=== PATIENT | female | born 1990 | race Caucasian/White ===

== ENCOUNTER 2016-10-09 17:22 | Emergency (ER) | payer BC, OTHER ==
[2016-10-09 17:33] VITALS: RESP 18
--- NOTE | 2016-10-09 17:47 | ED ---
General Adult HPI - General Chief complaint: Psychiatric Symptoms Stated complaint: MENTAL HEALTH - SUICIDAL Time Seen by Provider: 10/09/16 17:42 Source: patient, RN notes reviewed Mode of arrival: ambulatory Limitations: no limitations - History of Present Illness Initial comments: Patient is a 26-year-old female who presents emergency room today with a chief complaint of increased suicidal thoughts. She does admit that she recently got out of alf. Does admit to a history of bipolar. States been 2 years since she 's been on medications. Patient states that she no longer has a therapist, but she is following up with. She states she's having increased thoughts of hurting herself. Patient denies any specific plan at this time. Will not elaborate on it. Denies any homicidal thoughts or plans. Denies any other complaints associated symptoms. Patient denies any recent fever, chills, shortness of breath, chest pain, back pain, abdominal pain, nausea or vomiting, numbness or tingling, dysuria or hematuria, constipation or diarrhea, headaches or visual changes, or any other complaints. - Related Data Home Medications Medication Instructions Recorded Confirmed No Known Home Medications [No 10/09/16 10/09/16 Known Home Medications] Allergies Allergy/AdvReac Type Severity Reaction Status Date / Time No Known Allergies Allergy Verified 10/09/16 17:59 Review of Systems ROS Statement: Those systems with pertinent positive or pertinent negative responses have been documented in the HPI. ROS Other: All systems not noted in ROS Statement are negative. Past Medical History Past Medical History: No Reported History History of Any Multi-Drug Resistant Organisms: None Reported Past Surgical History: No Surgical Hx Reported Past Psychological History: Anxiety, Bipolar, Depression Smoking Status: Current every day smoker Past Alcohol Use History: None Reported Past Drug Use History: None Reported General Exam - General Exam Comments Initial Comments: General: The patient is awake and alert, in no distress, and does not appear acutely ill. Eye: Pupils are equal, round and reactive to light, extra-ocular movements are intact. No nystagmus. There is normal conjunctiva bilaterally. No signs of icterus. Ears, nose, mouth and throat: There are moist mucous membranes and no oral lesions. Neck: The neck is supple, there is no tenderness or JVD. Cardiovascular: There is a regular rate and rhythm. No murmur, rub or gallop is appreciated. Respiratory: Lungs are clear to auscultation, respirations are non-labored, breath sounds are equal. No wheezes, stridor, rales, or rhonchi. Musculoskeletal: Normal ROM, no tenderness. Strength 5/5. Sensation intact. Pulses equal bilaterally 2+. Neurological: A&O x 3. CN II-XII intact, There are no obvious motor or sensory deficits. Coordination appears grossly intact. Speech is normal. Skin: Skin is warm and dry and no rashes or lesions are noted. Psychiatric: Cooperative, appropriate mood & affect, normal judgment. Limitations: no limitations Course Vital Signs 10/09/16 17:31 Temperature 98.1 F Pulse Rate 100 Respiratory 18 Rate Blood Pressure 139/79 O2 Sat by Pulse 98 Oximetry Medical Decision Making - Medical Decision Making Patient was seen here in the emergency room by [facility]. The recommendation that patient can follow up outpatient. They have arranged for a ride with [facility] which will come to pick patient up from the ER. - Lab Data Lab Results 10/09/16 10/09/16 Range/Units 19:35 19:35 Urine HCG, Qual Not Detected (Not Detectd) Urine Opiates Screen Not Detected (NotDetected) Ur Oxycodone Screen Not Detected (NotDetected) Urine Methadone Screen Not Detected (NotDetected) Ur Propoxyphene Screen Not Detected (NotDetected) Ur Barbiturates Screen Not Detected (NotDetected) U Tricyclic Antidepress Not Detected (NotDetected) Ur Phencyclidine Scrn Not Detected (NotDetected) Ur Amphetamines Screen Not Detected (NotDetected) U Methamphetamines Scrn Not Detected (NotDetected) U Benzodiazepines Scrn Not Detected (NotDetected) Urine Cocaine Screen Not Detected (NotDetected) U Marijuana (THC) Screen Not Detected (NotDetected) Disposition Clinical Impression: Bipolar disorder Disposition: HOME SELF-CARE Condition: Stable Instructions: Bipolar Disorder (ED) Additional Instructions: Please follow-up mental health as discussed over the next 2 days. Please return to emergency room if any symptoms increase worsen or for any other concerns. Time of Disposition: 20:20
[2016-10-09 20:43] VITALS: BP 128/75; PULSE 82; TEMP 97.9
== END 2016-10-09 20:42 | disposition home or self-care (01) ==
LOC: EC 17:22
DX: F31.9 Bipolar disorder, unspecified (principal); F17.200 Nicotine dependence, unspecified, uncomplicated
CPT/HCPCS: 80306; 81025; 82075; 99284

== ENCOUNTER 2017-04-10 22:05 | Emergency (ER) | payer OTHER ==
[2017-04-10 22:22] VITALS: RESP 18
[2017-04-11] MEDS ORDERED: SODIUM CHLORIDE 0.9% 1,000 ML IV STA (00:05)
[2017-04-11] MEDS ORDERED: ONDANSETRON 4 MG/2 ML VIAL IVP STA (00:05)
[2017-04-11 00:52] LABS: Appearance,Urine Clear (Clear); Bacteria,Urine Rare /hpf; Bilirubin,Urine Negative (Negative); Glucose,Urine (UA) Negative (Negative); Ketones,Urine 1+ (Negative); Leukocyte Esterase,Urine Negative (Negative); Mucus,Urine Many /hpf; Nitrite,Urine Negative (Negative); PH, Urine 5.5 (5.0-8.0); Particle Count 9349; Protein,Urine 1+ (Negative); RBC,Urine 1 /hpf (0-5); Specific Gravity,Urine 1.032 (1.001-1.035); Squamous Epithelial Cell,Urine 3 /hpf (0-4); UA Billing (MACRO vs. MICRO) MICRO; WBC,Urine 2 /hpf (0-5)
[2017-04-11 00:58] LABS: Aty Lym Flag Slight; CH 28.6; CHCM 32.9; HCT 40.3 % (34.0-46.0); HDW 2.23; HGB 13.8 gm/dL (11.4-16.0); MCHC 34.4 g/dL (31.0-37.0); MCV 87.3 fL (80.0-100.0); RBC 4.61 m/uL (3.80-5.40); RDW 12.6 % (11.5-15.5); WBC 12.9 k/uL (3.8-10.6); WBC (Perox) 12.37
[2017-04-11 01:07] LABS: ALT 84 U/L (9-52); AST 49 U/L (14-36); Alkaline Phosphatase 61 U/L (38-126); Anion Gap 11 mmol/L; Blood Urea Nitrogen 8 mg/dL (7-17); Calcium 9.3 mg/dL (8.4-10.2); Carbon Dioxide 22 mmol/L (22-30); Chloride 105 mmol/L (98-107); Glucose 95 mg/dL (74-99); Non-African American GFR(MDRD) >60 (>60 ml/min/1.73 sqM); Potassium 4.3 mmol/L (3.5-5.1); Sodium 138 mmol/L (137-145); Total Bilirubin 0.6 mg/dL (0.2-1.3); Total Protein 7.7 g/dL (6.3-8.2)
--- NOTE | 2017-04-11 01:27 | ED ---
Nausea/Vomiting/Diarrhea HPI - General Chief complaint: Nausea/Vomiting/Diarrhea Stated complaint: VOMITING Time Seen by Provider: 04/10/17 22:49 Source: patient Mode of arrival: ambulatory Limitations: no limitations - History of Present Illness Initial comments: This patient is a 27-year-old woman who presents with a constellation of complaints that include congestion, cough, sore throat, nausea and vomiting that is been going on for between 2 and 3 days. She comes in tonight because while she was at work tonight she began feeling nauseated and lightheaded and then passed out and woke up on the floor. The patient denies having any injury. She denies pain. MD complaint: nausea, vomiting Onset/Timin -: days(s) Description of Vomiting: food contents Associated Abdominal Pain: No Quality: cramping Consistency: intermittent, now resolved Improves with: none Worsens with: none Associated Symptoms: cough, other - Related Data Home Medications Medication Instructions Recorded Confirmed Acetaminophen [Tylenol] 650 mg PO Q4H PRN 04/10/17 04/10/17 Dm/Acetaminophen/Doxylamine [Vicks 30 ml PO DAILY PRN 04/10/17 04/10/17 Nyquil Cold & Flu Liquid] Previous Rx's Medication Instructions Recorded Famotidine [Pepcid] 20 mg PO DAILY #14 tablet 04/11/17 Ondansetron Odt [Zofran ODT] 4 mg PO Q8HR PRN #10 tab 04/11/17 Allergies Allergy/AdvReac Type Severity Reaction Status Date / Time No Known Allergies Allergy Verified 04/10/17 22:51 Review of Systems ROS Statement: Those systems with pertinent positive or pertinent negative responses have been documented in the HPI. ROS Other: All systems not noted in ROS Statement are negative. Constitutional: Denies: fever, chills ENT: Reports: throat pain, congestion Respiratory: Reports: cough. Denies: dyspnea, wheezes Cardiovascular: Reports: syncope. Denies: chest pain, palpitations, edema Gastrointestinal: Reports: nausea, vomiting. Denies: abdominal pain, diarrhea, melena, hematochezia Genitourinary: Denies: dysuria, hematuria Musculoskeletal: Denies: back pain Skin: Denies: rash Neurological: Denies: headache, weakness, numbness Past Medical History Past Medical History: No Reported History History of Any Multi-Drug Resistant Organisms: None Reported Past Surgical History: No Surgical Hx Reported Past Psychological History: Anxiety, Bipolar, Depression Smoking Status: Current every day smoker Past Alcohol Use History: Occasional Past Drug Use History: None Reported General Exam Limitations: no limitations General appearance: alert, in no apparent distress Head exam: Present: atraumatic, normocephalic, normal inspection Eye exam: Present: normal appearance. Absent: scleral icterus, conjunctival injection ENT exam: Present: mucous membranes moist, TM's normal bilaterally, other (Mild injection of the pharynx) Neck exam: Present: normal inspection, full ROM, lymphadenopathy. Absent: tenderness, meningismus Respiratory exam: Present: normal lung sounds bilaterally. Absent: respiratory distress, wheezes, rales, rhonchi, stridor Cardiovascular Exam: Present: regular rate, normal rhythm, normal heart sounds. Absent: systolic murmur, diastolic murmur, rubs, gallop GI/Abdominal exam: Present: soft. Absent: distended, tenderness, guarding, rebound, rigid Extremities exam: Present: normal inspection, normal capillary refill. Absent: pedal edema, calf tenderness Back exam: Present: normal inspection. Absent: CVA tenderness (R), CVA tenderness (L) Neurological exam: Present: alert Skin exam: Present: warm, dry, intact, normal color. Absent: rash Course Vital Signs 04/10/17 04/11/17 22:20 01:56 Temperature 99.3 F 98.9 F Pulse Rate 92 62 Respiratory 18 18 Rate Blood Pressure 121/68 124/70 O2 Sat by Pulse 98 96 Oximetry Medical Decision Making - Lab Data Result diagrams: 04/11/17 00:44 04/11/17 00:44 Lab Results 04/11/17 04/11/17 04/11/17 Range/Units 00:35 00:35 00:35 WBC (3.8-10.6) k/uL RBC (3.80-5.40) m/uL Hgb (11.4-16.0) gm/dL Hct (34.0-46.0) % MCV (80.0-100.0) fL MCH (25.0-35.0) pg MCHC (31.0-37.0) g/dL RDW (11.5-15.5) % Plt Count (150-450) k/uL Neutrophils % (Manual) % Lymphocytes % (Manual) % Monocytes % (Manual) % Eosinophils % (Manual) % Neutrophils # (Manual) (1.3-7.7) k/uL Lymphocytes # (Manual) (1.0-4.8) k/uL Monocytes # (Manual) (0-1.0) k/uL Eosinophils # (Manual) (0-0.7) k/uL Nucleated RBCs (0-0) /100 WBC Toxic Vacuolation Poikilocytosis (manual Anisocytosis (manual) Sodium (137-145) mmol/L Potassium (3.5-5.1) mmol/L Chloride (98-107) mmol/L Carbon Dioxide (22-30) mmol/L Anion Gap mmol/L BUN (7-17) mg/dL Creatinine (0.52-1.04) mg/dL Est GFR (MDRD) Af Amer (>60 ml/min/1.73 sqM) Est GFR (MDRD) Non-Af (>60 ml/min/1.73 sqM) Glucose (74-99) mg/dL Calcium (8.4-10.2) mg/dL Total Bilirubin (0.2-1.3) mg/dL AST (14-36) U/L ALT (9-52) U/L Alkaline Phosphatase (38-126) U/L Total Protein (6.3-8.2) g/dL Albumin (3.5-5.0) g/dL Urine Color Yellow Urine Appearance Clear (Clear) Urine pH 5.5 (5.0-8.0) Ur Specific [place] 1.032 (1.001-1.035) Urine Protein 1+ H (Negative) Urine Glucose (UA) Negative (Negative) Urine Ketones 1+ H (Negative) Urine Blood Negative (Negative) Urine Nitrite Negative (Negative) Urine Bilirubin Negative (Negative) Urine Urobilinogen 2.0 (<2.0) mg/dL Ur Leukocyte Esterase Negative (Negative) Urine RBC 1 (0-5) /hpf Urine WBC 2 (0-5) /hpf Ur Squamous Epith Cells 3 (0-4) /hpf Urine Bacteria Rare H (None) /hpf Urine Mucus Many H (None) /hpf Urine HCG, Qual Not Detected (Not Detectd) Group A Strep Rapid Negative (Negative) 07/14/17 07/14/17 Range/Units 00:44 00:44 WBC 12.9 H (3.8-10.6) k/uL RBC 4.61 (3.80-5.40) m/uL Hgb 13.8 (11.4-16.0) gm/dL Hct 40.3 (34.0-46.0) % MCV 87.3 (80.0-100.0) fL MCH 30.0 (25.0-35.0) pg MCHC 34.4 (31.0-37.0) g/dL RDW 12.6 (11.5-15.5) % Plt Count 280 (150-450) k/uL Neutrophils % (Manual) 45.0 % Lymphocytes % (Manual) 47.0 % Monocytes % (Manual) 7.0 % Eosinophils % (Manual) 1.0 % Neutrophils # (Manual) 5.8 (1.3-7.7) k/uL Lymphocytes # (Manual) 6.1 H (1.0-4.8) k/uL Monocytes # (Manual) 0.9 (0-1.0) k/uL Eosinophils # (Manual) 0.1 (0-0.7) k/uL Nucleated RBCs 0 (0-0) /100 WBC Toxic Vacuolation Present Poikilocytosis (manual Present Anisocytosis (manual) Present Sodium 138 (137-145) mmol/L Potassium 4.3 (3.5-5.1) mmol/L Chloride 105 (98-107) mmol/L Carbon Dioxide 22 (22-30) mmol/L Anion Gap 11 mmol/L BUN 8 (7-17) mg/dL Creatinine 0.60 (0.52-1.04) mg/dL Est GFR (MDRD) Af Amer >60 (>60 ml/min/1.73 sqM) Est GFR (MDRD) Non-Af >60 (>60 ml/min/1.73 sqM) Glucose 95 (74-99) mg/dL Calcium 9.3 (8.4-10.2) mg/dL Total Bilirubin 0.6 (0.2-1.3) mg/dL AST 49 H (14-36) U/L ALT 84 H (9-52) U/L Alkaline Phosphatase 61 (38-126) U/L Total Protein 7.7 (6.3-8.2) g/dL Albumin 4.4 (3.5-5.0) g/dL Urine Color Urine Appearance (Clear) Urine pH (5.0-8.0) Ur Specific [place] (1.001-1.035) Urine Protein (Negative) Urine Glucose (UA) (Negative) Urine Ketones (Negative) Urine Blood (Negative) Urine Nitrite (Negative) Urine Bilirubin (Negative) Urine Urobilinogen (<2.0) mg/dL Ur Leukocyte Esterase (Negative) Urine RBC (0-5) /hpf Urine WBC (0-5) /hpf Ur Squamous Epith Cells (0-4) /hpf Urine Bacteria (None) /hpf Urine Mucus (None) /hpf Urine HCG, Qual (Not Detectd) Group A Strep Rapid (Negative) Disposition Clinical Impression: Viral syndrome, Elevated transaminase level Disposition: HOME SELF-CARE Condition: Good Instructions: Acute Nausea and Vomiting (ED), Viral Syndrome (ED) Additional Instructions: As we discussed, your transaminase levels are slightly elevated. You must follow-up in 3-5 days to have them rechecked. Return if any of the symptoms that we discussed develop or if your worsening in any way. Prescriptions: Famotidine [Pepcid] 20 mg PO DAILY #14 tablet Ondansetron Odt [Zofran ODT] 4 mg PO Q8HR PRN #10 tab PRN Reason: Nausea Referrals: Robin Johnson MD [REFERRING] - 1-2 days None,Stated [Primary Care Provider] - 1-2 days Rudy Medeiros MD [STAFF PHYSICIAN] - 1-2 days
[2017-04-11 01:57] VITALS: BP 124/70; PULSE 62; TEMP 98.9
[2017-04-11 02:06] LABS: Add Differential Manual Differential
[2017-04-11 02:08] LABS: Nucleated Red Blood Cells 0 /100 WBC (0-0); Total Cells Counted 100
[2017-04-11 02:10] LABS: Toxic Vacuolation Present
== END 2017-04-11 01:56 | disposition home or self-care (01) ==
LOC: EC 22:05
DX: B34.9 Viral infection, unspecified (principal); R74.0 Nonspecific elevation of levels of transaminase and lactic acid dehydrogenase [LDH]; F17.200 Nicotine dependence, unspecified, uncomplicated
CPT/HCPCS: 99284; 96374; 96361; 36415; 80053; 85025; 81001; 81025; 87081; 87430; J2405

== ENCOUNTER 2017-06-19 17:42 | Emergency (ER) | payer OTHER ==
[2017-06-19 17:49] VITALS: RESP 18
[2017-06-19] MEDS ORDERED: ONDANSETRON 4 MG/2 ML VIAL IVP STA (18:23)
[2017-06-19] MEDS ORDERED: SODIUM CHLORIDE 0.9% 500 ML IV ONE (18:24)
[2017-06-19] MEDS ORDERED: SODIUM CHLORIDE 0.9% 1,000 ML IV ONE (18:24)
--- NOTE | 2017-06-19 18:27 | ED ---
Nausea/Vomiting/Diarrhea HPI - General Chief complaint: Nausea/Vomiting/Diarrhea Stated complaint: Vomiting and sweating Time Seen by Provider: 06/19/17 18:17 Source: patient Mode of arrival: ambulatory Limitations: no limitations - History of Present Illness Initial comments: 27-year-old female patient presents to emergency department today with complaints of vomiting. Patient states that she did drink alcohol last evening , she estimates around a pint of liquor. She states that she generally drinks at least 1 pint per day for the last few months. She states that she passed out in the backseat of a car and slept in there until around 1100 this morning. Temperature outside was around 80-85 F, she states she was very hot and sweaty. She states that when she went to work today she became dizzy and started vomiting. Patient states that she has had 7-8 episodes of vomiting since it started. She is also reporting a headache with this. She denies any abdominal pain, constipation, diarrhea. She denies any hematemesis, melena, or hematochezia. Patient denies any recent fever, chills, shortness breath, chest pain, back pain, numbness, tingling, dizziness, weakness, hematuria, dysuria, urinary urgency, urinary frequency, visual changes, or any other complaints. Patient states that she does have a past history of IV drug abuse. States that she hasn't used for the last couple of years. She is concerned and would like to be checked for hepatitis. - Related Data Home Medications Medication Instructions Recorded Confirmed No Known Home Medications [No 06/19/17 06/19/17 Known Home Medications] Allergies Allergy/AdvReac Type Severity Reaction Status Date / Time No Known Allergies Allergy Verified 06/19/17 18:35 Review of Systems ROS Statement: Those systems with pertinent positive or pertinent negative responses have been documented in the HPI. ROS Other: All systems not noted in ROS Statement are negative. Past Medical History Past Medical History: No Reported History History of Any Multi-Drug Resistant Organisms: None Reported Past Surgical History: No Surgical Hx Reported Past Psychological History: Anxiety, Bipolar, Depression, PTSD Smoking Status: Current every day smoker Past Alcohol Use History: Daily Past Drug Use History: None Reported General Exam Limitations: no limitations General appearance: alert, in no apparent distress, other (Alert, oriented, well -developed, well-nourished female in no acute distress. Vital signs upon presentation are temperature 97.2F, pulse 74, respirations 18, blood pressure 120/76, pulse ox 98% on room air.) ENT exam: Present: normal exam, normal oropharynx, mucous membranes moist Respiratory exam: Present: normal lung sounds bilaterally. Absent: respiratory distress, wheezes, rales, rhonchi, stridor Cardiovascular Exam: Present: regular rate, normal rhythm, normal heart sounds. Absent: systolic murmur, diastolic murmur, rubs, gallop, clicks GI/Abdominal exam: Present: soft, normal bowel sounds. Absent: distended, tenderness, guarding, rebound, rigid Neurological exam: Present: alert, oriented X3, CN II-XII intact Psychiatric exam: Present: normal affect, normal mood Skin exam: Present: warm, dry, intact, normal color. Absent: rash Course Vital Signs 06/19/17 06/19/17 17:44 20:35 Temperature 97.2 F L 98.1 F Pulse Rate 74 71 Respiratory 18 18 Rate Blood Pressure 120/76 115/61 O2 Sat by Pulse 98 100 Oximetry Medical Decision Making - Medical Decision Making 27-year-old female patient presented for evaluation after having multiple episodes of vomiting today starting around 1100. Patient did admit to being intoxicated last evening and left in a hot car until 11:00 this morning. Lab work was performed and was unremarkable except for some mildly elevated liver enzymes, patient states that this is chronic. She did receive IV fluids as well as Zofran in the department and states that she is feeling much better. She did request a hepatitis panel she does have a past history significant for IV drug abuse. Hepatitis panel was performed however this is now a send out lab and results of the back sometime tomorrow or the next day. She was instructed to call for the results results. She'll be discharged home with instructions to increase clear liquids. To start with a clear liquid diet and advance as tolerated. She is instructed to cease alcohol use. She is instructed to follow-up with her primary care physician for recheck. She is instructed to return here immediately for any new, worsening, or concerning symptoms. Patient verbalized understanding and agrees with this plan. - Lab Data Result diagrams: 06/19/17 18:43 06/19/17 18:43 Lab Results 09/21/17 09/21/17 Range/Units 18:43 18:43 WBC 11.2 H (3.8-10.6) k/uL RBC 4.71 (3.80-5.40) m/uL Hgb 13.7 (11.4-16.0) gm/dL Hct 42.5 (34.0-46.0) % MCV 90.3 (80.0-100.0) fL MCH 29.2 (25.0-35.0) pg MCHC 32.3 (31.0-37.0) g/dL RDW 13.3 (11.5-15.5) % Plt Count 281 (150-450) k/uL Neutrophils % 56 % Lymphocytes % 35 % Monocytes % 6 % Eosinophils % 1 % Basophils % 1 % Neutrophils # 6.2 (1.3-7.7) k/uL Lymphocytes # 3.9 (1.0-4.8) k/uL Monocytes # 0.6 (0-1.0) k/uL Eosinophils # 0.1 (0-0.7) k/uL Basophils # 0.1 (0-0.2) k/uL Sodium 138 (137-145) mmol/L Potassium 4.2 (3.5-5.1) mmol/L Chloride 106 (98-107) mmol/L Carbon Dioxide 23 (22-30) mmol/L Anion Gap 9 mmol/L BUN 9 (7-17) mg/dL Creatinine 0.60 (0.52-1.04) mg/dL Est GFR (MDRD) Af Amer >60 (>60 ml/min/1.73 sqM) Est GFR (MDRD) Non-Af >60 (>60 ml/min/1.73 sqM) Glucose 90 (74-99) mg/dL Calcium 9.1 (8.4-10.2) mg/dL Total Bilirubin 1.2 (0.2-1.3) mg/dL AST 59 H (14-36) U/L ALT 76 H (9-52) U/L Alkaline Phosphatase 65 (38-126) U/L Total Protein 7.4 (6.3-8.2) g/dL Albumin 4.1 (3.5-5.0) g/dL Disposition Clinical Impression: Nausea and vomiting, Alcohol abuse Disposition: HOME SELF-CARE Condition: Good Instructions: Abuse of Alcohol (ED), At-Risk Alcohol Use (ED), Acute Nausea and Vomiting (ED) Additional Instructions: Rest. Increase fluids. Start with a clear liquid diet and advance as tolerated. Follow-up with her primary care physician for recheck in 1-2 days. Call in 24-48 hours for results of hepatitis panel. Return here immediately for any new, worsening, or concerning symptoms. Referrals: None,Stated [Primary Care Provider] - 1-2 days Time of Disposition: 20:14
[2017-06-19 18:58] LABS: Basophils # (A) 0.1 k/uL (0-0.2); Basophils % (A) 1 %; CH 28.9; CHCM 32.1; Eosinophils # (A) 0.1 k/uL (0-0.7); Eosinophils % (A) 1 %; HCT 42.5 % (34.0-46.0); HDW 2.12; HGB 13.7 gm/dL (11.4-16.0); Luc # (Auto) 0.34; Luc % (Auto) 3; Lymphocytes # (A) 3.9 k/uL (1.0-4.8); Lymphocytes % (A) 35 %; MCH 29.2 pg (25.0-35.0); MCHC 32.3 g/dL (31.0-37.0); MCV 90.3 fL (80.0-100.0); Mean Platelet Volume 6.6; Monocytes # (A) 0.6 k/uL (0-1.0); Monocytes % (A) 6 %; Neutrophils # (A) 6.2 k/uL (1.3-7.7); Neutrophils % (A) 56 %; RBC 4.71 m/uL (3.80-5.40); RDW 13.3 % (11.5-15.5); WBC 11.2 k/uL (3.8-10.6)
[2017-06-19 19:03] LABS: ALT 76 U/L (9-52); AST 59 U/L (14-36); Alkaline Phosphatase 65 U/L (38-126); Anion Gap 9 mmol/L; Blood Urea Nitrogen 9 mg/dL (7-17); Calcium 9.1 mg/dL (8.4-10.2); Carbon Dioxide 23 mmol/L (22-30); Chloride 106 mmol/L (98-107); Glucose 90 mg/dL (74-99); Non-African American GFR(MDRD) >60 (>60 ml/min/1.73 sqM); Potassium 4.2 mmol/L (3.5-5.1); Sodium 138 mmol/L (137-145); Total Bilirubin 1.2 mg/dL (0.2-1.3); Total Protein 7.4 g/dL (6.3-8.2)
[2017-06-19 20:36] VITALS: BP 115/61; PULSE 71; TEMP 98.1
== END 2017-06-19 20:36 | disposition home or self-care (01) ==
LOC: EC 17:42
DX: F10.10 Alcohol abuse, uncomplicated (principal); R11.2 Nausea with vomiting, unspecified; F17.200 Nicotine dependence, unspecified, uncomplicated
CPT/HCPCS: 36415; 80053; 80074; 85025; 99284; 96374; 96361 ×2; J2405

== ENCOUNTER 2017-11-15 20:40 | Emergency (ER) | payer OTHER ==
[2017-11-15 20:55] VITALS: RESP 16; TEMP 99
[2017-11-15] MEDS ORDERED: BACITRACIN 500 UNIT/GM OINT 28.4 GM TUBE TOPICAL ONE (21:04)
--- NOTE | 2017-11-15 21:04 | ED ---
General Adult HPI - General Chief complaint: Extremity Injury, Upper Stated complaint: Allergic reaction Time Seen by Provider: 11/15/17 20:53 Source: patient Mode of arrival: ambulatory Limitations: no limitations - History of Present Illness Initial comments: This is a 27 year old female who presents with a chief complaint of reaction to paint thinner. The patient was using paint thinner while wearing gloves and spilled paint thinner on her right hand. She took the glove off and states that her hand was very white in color and felt like a burn. She washed her hands but states feeling like her hands were swelling as she continued to work. Her boss allowed her to leave work and come to the ED for further evaluation. The patient denies any other contact with the paint thinner and has no known history of reaction to paint thinner. - Related Data Home Medications Medication Instructions Recorded Confirmed Ibuprofen [Motrin] 200 - 400 mg PO Q6HR PRN 09/17/17 09/17/17 Previous Rx's Medication Instructions Recorded Ondansetron HCl [Zofran] 4 mg PO TID PRN #12 tablet 09/17/17 Ibuprofen [Motrin] 600 mg PO Q8HR PRN #30 tab 11/15/17 Allergies Allergy/AdvReac Type Severity Reaction Status Date / Time No Known Allergies Allergy Verified 11/15/17 20:55 Review of Systems ROS Statement: Those systems with pertinent positive or pertinent negative responses have been documented in the HPI. ROS Other: All systems not noted in ROS Statement are negative. Past Medical History Past Medical History: No Reported History Additional Past Medical History / Comment(s): exposure to Hepaitits C History of Any Multi-Drug Resistant Organisms: None Reported Past Surgical History: No Surgical Hx Reported Past Psychological History: Anxiety, Bipolar, Depression, PTSD Smoking Status: Current every day smoker Past Alcohol Use History: None Reported Past Drug Use History: Marijuana - Past Family History Mother Additional Family Medical History / Comment(s): She denies any family history of heart disease and stroke. General Exam Limitations: no limitations General appearance: alert, in no apparent distress Head exam: Present: atraumatic, normocephalic, normal inspection Extremities exam: Present: other (There are few erythematous lesions located on the right fingers and hand. No open wounds or notable edema.) Neurological exam: Present: alert, oriented X3, CN II-XII intact Psychiatric exam: Present: normal affect, normal mood Skin exam: Present: warm, dry, intact, normal color. Absent: rash Course Vital Signs 11/15/17 20:52 Temperature 99.0 F Pulse Rate 120 H Respiratory 16 Rate Blood Pressure 132/80 O2 Sat by Pulse 98 Oximetry Medical Decision Making - Medical Decision Making The 27 year old patient presented with concerns for possible allergic reaction to paint thinner. After physical exam, it is apparent the patient has minimal chemical flores. She was given topical bacitracin ointment to and instructed to apply over the counter bacitracin ointment as needed until resolved. She may take anti-inflammatory medication as needed for pain and resume work activities as normal. Disposition Clinical Impression: Superficial chemical burn of back of right hand Disposition: HOME SELF-CARE Condition: Stable Instructions: Chemical Skin Burn (ED) Additional Instructions: Please return to the emergency department if experiencing new or worsening symptoms. Prescriptions: Ibuprofen [Motrin] 600 mg PO Q8HR PRN #30 tab PRN Reason: Pain Referrals: None,Stated [Primary Care Provider] - 1-2 days
[2017-11-15 21:30] VITALS: BP 124/68; PULSE 110
== END 2017-11-15 21:30 | disposition home or self-care (01) ==
LOC: EC 20:40
DX: T65.6X1A Toxic effect of paints and dyes, not elsewhere classified, accidental (unintentional), initial encounter (principal); T23.561A Corrosion of first degree of back of right hand, initial encounter; F17.200 Nicotine dependence, unspecified, uncomplicated; Y92.89 Other specified places as the place of occurrence of the external cause
CPT/HCPCS: 16000; 99282

== ENCOUNTER 2017-12-27 15:44 | Inpatient (IN) | payer OTHER ==
[2017-12-27 16:32] LABS: Amphetamine Screen,Urine Detected (NotDetected); Barbiturate Screen,Urine Not Detected (NotDetected); Benzodiazepines Screen,Urine Not Detected (NotDetected); Cocaine Screen,Urine Not Detected (NotDetected); Methadone Screen, Urine Not Detected (NotDetected); Opiate Screen,Urine Detected (NotDetected); Oxycodone Screen, Urine Not Detected (NotDetected); Phencyclidine Screen,Urine Not Detected (NotDetected); Tricyclic Antidepressant,Urine Not Detected (NotDetected); Urn Cannabinoid Scrn Detected (NotDetected)
--- NOTE | 2017-12-27 16:35 | ED ---
General Adult HPI - General Chief complaint: Psychiatric Symptoms Stated complaint: Mental Health Eval Time Seen by Provider: 12/27/17 15:49 Source: patient, RN notes reviewed Mode of arrival: ambulatory Limitations: no limitations - History of Present Illness Initial comments: 27-year-old female presents to the emergency department with a chief complaint of suicidal ideation. Patient states that this started today. She considered overdosing on heroin but her girlfriend stopped her. She has a history of heroin abuse. She denies any current health concerns or any other complaints at this time. Patient denies any recent fever, chills, shortness of breath, chest pain, back pain, abdominal pain, nausea vomiting, numbness or tingling, dysuria or hematuria, constipation or diarrhea, headaches or visual changes, or any other current symptoms. - Related Data Home Medications Medication Instructions Recorded Confirmed No Known Home Medications [No 12/27/17 12/27/17 Known Home Medications] Allergies Allergy/AdvReac Type Severity Reaction Status Date / Time No Known Allergies Allergy Verified 12/27/17 16:21 Review of Systems ROS Statement: Those systems with pertinent positive or pertinent negative responses have been documented in the HPI. ROS Other: All systems not noted in ROS Statement are negative. Past Medical History Past Medical History: No Reported History Additional Past Medical History / Comment(s): Hepaitits C History of Any Multi-Drug Resistant Organisms: None Reported Past Surgical History: No Surgical Hx Reported Past Psychological History: Anxiety, Bipolar, Depression, PTSD Smoking Status: Current every day smoker Past Alcohol Use History: None Reported Past Drug Use History: Heroin, IV Drug Use, Marijuana - Past Family History Mother Additional Family Medical History / Comment(s): She denies any family history of heart disease and stroke. General Exam Limitations: no limitations General appearance: alert, in no apparent distress ENT exam: Present: normal exam, mucous membranes moist Neck exam: Present: normal inspection. Absent: tenderness, meningismus, lymphadenopathy Respiratory exam: Present: normal lung sounds bilaterally. Absent: respiratory distress, wheezes, rales, rhonchi, stridor Cardiovascular Exam: Present: regular rate, normal rhythm, normal heart sounds. Absent: systolic murmur, diastolic murmur, rubs, gallop, clicks Neurological exam: Present: alert, oriented X3 Psychiatric exam: Present: suicidal ideation. Absent: homicidal ideation Skin exam: Present: warm, dry, intact, normal color. Absent: rash Course Vital Signs 12/27/17 15:45 Temperature 97.1 F L Pulse Rate 84 Respiratory 20 Rate Blood Pressure 124/80 O2 Sat by Pulse 96 Oximetry Medical Decision Making - Medical Decision Making 27-year-old female presents with chief complaint of suicidal ideation. At this time she does not appear to be suffering from acute medical emergencies. Patient is cleared to be evaluated by psychiatry. This time patient was evaluated and they are recommending admission. This time patient will be going up for continued psychiatric care. - Lab Data Lab Results 12/27/17 12/27/17 Range/Units 16:05 17:03 Urine HCG, Qual Not Detected (Not Detectd) Urine Opiates Screen Detected H (NotDetected) Ur Oxycodone Screen Not Detected (NotDetected) Urine Methadone Screen Not Detected (NotDetected) Ur Propoxyphene Screen Not Detected (NotDetected) Ur Barbiturates Screen Not Detected (NotDetected) U Tricyclic Antidepress Not Detected (NotDetected) Ur Phencyclidine Scrn Not Detected (NotDetected) Ur Amphetamines Screen Detected H (NotDetected) U Methamphetamines Scrn Detected H (NotDetected) U Benzodiazepines Scrn Not Detected (NotDetected) Urine Cocaine Screen Not Detected (NotDetected) U Marijuana (THC) Screen Detected H (NotDetected) Disposition Clinical Impression: Depression Disposition: TRANSFER TO PSYCH HOSP/UNIT Referrals: None,Stated [Primary Care Provider] - 1-2 days
[2017-12-27] MEDS ORDERED: MAG HYDROX/AL HYDROX/SIMETH 30 ML CUP PO PRN (20:10)
[2017-12-27] MEDS ORDERED: ACETAMINOPHEN TAB 325 MG TAB PO PRN (20:10)
[2017-12-27] MEDS ORDERED: MAGNESIUM HYDROXIDE 2,400 MG/10 ML CUP PO PRN (20:10)
[2017-12-27 20:58] VITALS: BMI 21.8
--- NOTE | 2017-12-27 20:58 | P.MDCNMH ---
History of Present Illness H&P Date: 12/27/17 Chief Complaint: Suicidal thoughts 27-year-old female presents to the emergency department with a chief complaint of suicidal ideation. Patient states that she has been having these thoughts over the last 2 months. Yesterday she considered overdosing on IV heroin but her girlfriend stopped her. She has a history of chronic heroin abuse. She denied having any hallucinations or delusions. No recent illness, no fevers or chills, no chest pain or shortness of breath, no abdominal pain, no nausea or vomiting, no urinary symptoms. When I evaluated her she was having symptoms of withdrawal from opiates. She was very uncomfortable and fidgety. Review of Systems 12 points review of system was performed, negative except HPI Past Medical History Past Medical History: No Reported History Additional Past Medical History / Comment(s): Hepaitits C History of Any Multi-Drug Resistant Organisms: None Reported Past Surgical History: No Surgical Hx Reported Past Psychological History: Anxiety, Bipolar, Depression, PTSD Smoking Status: Current every day smoker Past Alcohol Use History: None Reported Past Drug Use History: Heroin, IV Drug Use, Marijuana - Past Family History Mother Additional Family Medical History / Comment(s): She denies any family history of heart disease and stroke. Medications and Allergies Home Medications Medication Instructions Recorded Confirmed Type No Known Home Medications [No 12/27/17 12/27/17 History Known Home Medications] Allergies Allergy/AdvReac Type Severity Reaction Status Date / Time No Known Allergies Allergy Verified 12/27/17 16:21 Physical Exam Vitals: Vital Signs Temp Pulse Resp BP Pulse Ox 12/27/17 19:13 69 16 100/52 98 12/27/17 15:45 97.1 F L 84 20 124/80 96 Intake and Output 12/27/17 12/27/17 12/27/17 06:59 14:59 22:59 Other: Weight 56.699 kg Constitutional: No acute distress, conversant, pleasant Eyes:Anicteric sclerae, moist conjunctiva, no lid-lag, PERRLA, ENMT: Oropharynx clear, no erythema, exudates Neck: Supple, FROM, no masses, or JVD, No carotid bruits, No thyromegaly Lungs: Clear to auscultation, Clear to percussion, Normal respiratory effort, no accessory muscle use Cardiovascular: Heart regular in rate and rhythm, No murmurs, gallops, or rubs, No peripheral edema Abdominal: Soft, Nontender, no guarding, rebound or rigidity, Normoactive bowel sounds, No hepatomegaly, No splenomegaly, No palpable mass Skin: Normal temperature, tone, texture, turgor, no induration, No subcutaneous nodules, No rash, lesions, No ulcers Extremities: No digital cyanosis, No clubbing, Pedal pulses intact and symmetrical, Radial pulses intact and symmetrical, No calf tenderness Psychiatric: Alert and oriented to person, place and time Neuro: Fidgety, moving uncomfortably and constantly. Muscles Strength 5/5 in all 4 extremities, Sensation to light touch grossly present throughout, Cranial nerves II-XII grossly intact, no focal sensory deficits Cranial Nerve Examination - Cranial Nerves Cranial Nerve II- Optic: Intact Cranial Nerve III- Oculomotor: Intact Cranial Nerve IV- Trochlear: Intact Cranial Nerve V- Trigeminal: Intact Cranial Nerve - Abducens: Intact Cranial Nerve VII- Facial: Intact Cranial Nerve VIII- Auditory: Intact Cranial Nerve IX- Glossopharyngeal: Intact Cranial Nerve X- Vagus: Intact Cranial Nerve XI- Accessory: Intact Cranial Nerve XII- Hypoglossal: Intact Results Labs: Abnormal Lab Results - Last 24 Hours (Table) 12/27/17 Range/Units 16:05 Urine Opiates Screen Detected H (NotDetected) Ur Amphetamines Screen Detected H (NotDetected) U Methamphetamines Scrn Detected H (NotDetected) U Marijuana (THC) Screen Detected H (NotDetected) Assessment and Plan Plan: #1 Suicidal thoughts Management per psychiatry #2 Opiates abuse Currently having withdrawal symptoms, start withdrawal protocol #3 Tooth decay/possible infection: Start Augmentin 875/125 mg by mouth twice a day #4 Smoking Counseled to quit Nicotine patch
[2017-12-27] MEDS: AMOXIC-POT CLAV 875-125MG 1 EACH TAB PO SCH (22:03)
[2017-12-28 08:50] LABS: Basophils % (A) 0 %; Eosinophils # (A) 0.3 k/uL (0-0.7); Eosinophils % (A) 3 %; HCT 37.2 % (34.0-46.0); HGB 12.1 gm/dL (11.4-16.0); Lymphocytes % (A) 49 %; MCH 27.8 pg (25.0-35.0); MCHC 32.5 g/dL (31.0-37.0); MCV 85.7 fL (80.0-100.0); Mean Platelet Volume 7.2; Monocytes # (A) 0.6 k/uL (0-1.0); Monocytes % (A) 7 %; Neutrophils % (A) 37 %; Platelet Count 295 k/uL (150-450); RBC 4.34 m/uL (3.80-5.40); RDW 12.4 % (11.5-15.5); WBC 8.3 k/uL (3.8-10.6)
[2017-12-28 09:06] LABS: ALT 77 U/L (9-52); AST 54 U/L (14-36); Albumin 3.3 g/dL (3.5-5.0); Alkaline Phosphatase 49 U/L (38-126); Anion Gap 9 mmol/L; Blood Urea Nitrogen 10 mg/dL (7-17); Calcium 8.9 mg/dL (8.4-10.2); Carbon Dioxide 26 mmol/L (22-30); Chloride 102 mmol/L (98-107); Cholesterol 146 mg/dL (<200); Glucose 91 mg/dL (74-99); HDL Cholesterol 46 mg/dL (40-60); LDL Cholesterol,Calculated 84 mg/dL (0-99); Potassium 3.9 mmol/L (3.5-5.1); Sodium 137 mmol/L (137-145); Total Bilirubin 1.1 mg/dL (0.2-1.3); Total Protein 6.5 g/dL (6.3-8.2); Triglycerides 81 mg/dL (<150)
[2017-12-28] MEDS: AMOXIC-POT CLAV 875-125MG 1 EACH TAB PO SCH ×2 (10:27→21:18)
[2017-12-28] MEDS: NICOTINE 14MG/24HR PATCH TRANSDERM SCH (10:28)
[2017-12-28] MEDS: LORazepam 1 MG TAB PO PRN ×2 (14:53→23:15)
[2017-12-28 15:07] VITALS: TEMP 98.7
[2017-12-28 19:50] LABS: Hemoglobin A1C 5.1 % (4.0-6.0)
[2017-12-28] MEDS: QUEtiapine 50 MG TAB PO SCH (23:15)
[2017-12-29] MEDS: NICOTINE 14MG/24HR PATCH TRANSDERM SCH (09:32)
[2017-12-29] MEDS: LORazepam 1 MG TAB PO PRN ×2 (09:32→20:35)
[2017-12-29] MEDS: AMOXIC-POT CLAV 875-125MG 1 EACH TAB PO SCH ×2 (09:32→20:34)
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
[2017-12-29 19:24] LABS: Amorphous Sediment,Urine Rare /hpf; Appearance,Urine Turbid (Clear); Bilirubin,Urine Negative (Negative); Blood,Urine Negative (Negative); Color,Urine Yellow; Glucose,Urine (UA) Negative (Negative); Ketones,Urine Negative (Negative); Leukocyte Esterase,Urine Trace (Negative); Mucus,Urine Moderate /hpf; Nitrite,Urine Negative (Negative); Protein,Urine 1+ (Negative); Specific Gravity,Urine 1.028 (1.001-1.035); Squamous Epithelial Cell,Urine 9 /hpf (0-4); Urobilinogen,Urine >12.0 mg/dL (<2.0)
[2017-12-29] MEDS: QUEtiapine 50 MG TAB PO SCH (20:34)
[2017-12-30] MEDS: AMOXIC-POT CLAV 875-125MG 1 EACH TAB PO SCH ×2 (08:03→20:32)
[2017-12-30] MEDS: NICOTINE 14MG/24HR PATCH TRANSDERM SCH (08:03)
[2017-12-30] MEDS: LORazepam 1 MG TAB PO PRN ×2 (08:04→23:45)
--- NOTE | 2017-12-30 10:45 | P.PN ---
Progress Note - Text Progress Note Date: 12/30/17 Patient was seen for routine follow-up examination. She is laying down in her bed and feels sleepy. She said she slept well last night. She said she needs to stay in bed for a little longer time and then she will be up and about. She was strongly advised to attend groups, socializes with others etc. She is taking her medication and does not have any adverse effects. She said she had talked to her girlfriend/fianc and she is doing well. This is a white ambulatory female with adequate hygiene. She is cooperative she does not show any psychomotor agitation or retardation. Her speech is soft spontaneous and goal-directed. Her mood is euthymic and affect is appropriate. She denies hallucinations and delusional thinking. She denies current suicidal and homicidal ideas. But she does not think her mind is clear enough for her to go home. She is well oriented with adequate memory concentration etc. Plan: Continue Seroquel 50 mg at bedtime, groups and other therapies.
[2017-12-30] MEDS: QUEtiapine 50 MG TAB PO SCH (20:32)
[2017-12-31 02:54] VITALS: BP 125/88; PULSE 144; RESP 16
[2017-12-31] MEDS: AMOXIC-POT CLAV 875-125MG 1 EACH TAB PO SCH (09:22)
[2017-12-31] MEDS: NICOTINE 14MG/24HR PATCH TRANSDERM SCH (09:24)
[2017-12-31] MEDS: LORazepam 1 MG TAB PO PRN (09:24)
--- NOTE | 2017-12-31 10:08 | P.PN ---
Progress Note - Text Progress Note Date: 12/31/17 Patient was seen for a follow-up examination. She is up and about and is alert today. She said she slept well and is almost done with her detox. She said she had contacted the rehab place and is waiting to hear from them. She said she has to go home get her things etc. before she can go to a rehab. Initially she was reluctant to go to rehab. When she was asked about it she said "what do you say , Women with the parents" referring to her girlfriend and explaining her change of mind. This is a white ambulatory female with good hygiene. She is friendly cheerful and cooperative. She does not show any psychomotor agitation or retardation. Her speech is spontaneous relevant and goal-directed. Her mood is cheerful and affect is appropriate. She denies hallucinations delusional thinking suicidal and homicidal thoughts. She is well oriented with good memory concentration etc. Plan: Continue Seroquel groups and other plans. Consider discharging her after discussing with the treatment team this morning.
--- NOTE | 2017-12-31 11:30 | P.DS ---
Providers Date of admission: 12/27/17 18:59 Expected date of discharge: 12/31/17 Attending physician: Tim Vaz Consults: 12/27/17 20:10 Consult Physician Routine Consulting Provider: Dontae Borja Consult Reason/Comments: medical management Do you want consulting provider notified?: Already Contacted Primary care physician: Stated None Hospital Course: Patient had her psychiatric evaluation, physical examination and psychosocial evaluation. After psychiatric examination she was continued on Seroquel 50 mg at bedtime for mood stabilization. She has been taking her medication and initially she was quite sleepy, usually in the mornings until today. Her mood improved, became free of suicide and homicide thoughts, agreed to go to the rehab, has a waiting period and because of this she is planning on going home until she can go to the rehab. In view of all these it was agreed to discharge her. She also attended her groups socialized with peers and staff etc. Condition at discharge: This is a white ambulatory female with good hygiene. She is polite friendly cheerful and cooperative. She does not show any psychomotor agitation or retardation. Her speech is spontaneous relevant and goal-directed. Her mood is euthymic to cheerful and affect is appropriate. She denies hallucinations, delusional thinking, suicidal and homicidal ideas. She is well oriented with good memory concentration etc. her insight and judgment are optimal at this point. Diagnosis on discharge: Unspecified bipolar and related disorder F 31.9 Opioid use disorder severe F 11.20. Cannabis use disorder mild F 12.10. 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 Antisocial personality disorder F 60.2. NKDA. 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 Plan - Discharge Summary Discharge Rx Participant: No New Discharge Prescriptions: New QUEtiapine [SEROquel] 50 mg PO HS 30 Days #30 tab Discharge Medication List QUEtiapine [SEROquel] 50 mg PO HS 30 Days #30 tab 12/31/17 [Rx] Follow up Appointment(s)/Referral(s): None,Stated [Primary Care Provider] - 1-2 days
== END 2017-12-31 14:35 | disposition home or self-care (01) | DRG 885 ==
LOC: EC 15:44 → 3MHU 18:59 → OBSVTOIN 18:59 → UNDODISOB 12-31 14:35
PROVIDERS: ADMIT Psychiatry & Neurology Psychiatry; ATTEND Psychiatry & Neurology Psychiatry
DX: F31.9 Bipolar disorder, unspecified (principal); F11.23 Opioid dependence with withdrawal; R45.851 Suicidal ideations; F12.90 Cannabis use, unspecified, uncomplicated; F15.90 Other stimulant use, unspecified, uncomplicated; F60.2 Antisocial personality disorder; F43.10 Post-traumatic stress disorder, unspecified; F41.9 Anxiety disorder, unspecified; K02.9 Dental caries, unspecified; F17.200 Nicotine dependence, unspecified, uncomplicated; Z65.3 Problems related to other legal circumstances
CPT/HCPCS: 80053; 80061; 80306; 81001; 81025; 82075; 83036; 84443; 85025; 99284; 99285

== ENCOUNTER 2018-02-16 19:19 | Emergency (ER) | payer OTHER ==
[2018-02-16] MEDS ORDERED: DICYCLOMINE 10 MG/ML 2 ML AMP IM STA (22:44)
[2018-02-16] MEDS ORDERED: ONDANSETRON ODT 4 MG TAB PO STA (22:44)
--- NOTE | 2018-02-16 22:47 | ED ---
Nausea/Vomiting/Diarrhea HPI - General Chief complaint: Nausea/Vomiting/Diarrhea Stated complaint: nausea/lightheaded Time Seen by Provider: 02/16/18 22:35 Source: patient Mode of arrival: ambulatory Limitations: no limitations - History of Present Illness Initial comments: 27-year-old female patient presents to the emergency department today for evaluation of vomiting and diarrhea since yesterday. Patient states that she has vomited several times this morning. States the vomiting has started to improve. She has been able to keep down small sips of water. States that she has also had several episodes of liquidy bowel movements. Denies any dark, bloody, or black stool. She denies any recent travel or sick contacts. She denies any ingestion of questionable foods. Patient states she is not having any abdominal pain with this. She denies any fevers or chills. She denies any chance of . Patient denies any recent rash, fever, chills, shortness breath, chest pain, constipation, back pain, numbness, tingling, dizziness, weakness, hematuria, dysuria, urinary urgency, urinary frequency, headache, visual changes, or any other complaints. - Related Data Previous Rx's Medication Instructions Recorded QUEtiapine [SEROquel] 50 mg PO HS 30 Days #30 tab 12/31/17 Ondansetron [Zofran ODT] 4 mg PO Q8HR PRN #10 tab 02/16/18 Allergies Allergy/AdvReac Type Severity Reaction Status Date / Time No Known Allergies Allergy Verified 02/16/18 20:26 Review of Systems ROS Statement: Those systems with pertinent positive or pertinent negative responses have been documented in the HPI. ROS Other: All systems not noted in ROS Statement are negative. Past Medical History Past Medical History: No Reported History Additional Past Medical History / Comment(s): Hepaitits C History of Any Multi-Drug Resistant Organisms: None Reported Past Surgical History: No Surgical Hx Reported Past Psychological History: Anxiety, Bipolar, Depression, PTSD Smoking Status: Current every day smoker Past Alcohol Use History: None Reported Past Drug Use History: Heroin, IV Drug Use, Marijuana - Past Family History Mother Additional Family Medical History / Comment(s): She denies any family history of heart disease and stroke. General Exam Limitations: no limitations General appearance: alert, in no apparent distress, other (This is a well- developed, well-nourished adult female patient in no acute distress. Vital signs upon presentation are temperature 97.9F, pulse 88, respirations 20, blood pressure 114/74, pulse ox 100% on room air.) Eye exam: Present: normal appearance, PERRL, EOMI. Absent: scleral icterus, conjunctival injection, periorbital swelling ENT exam: Present: normal exam, normal oropharynx, mucous membranes moist Respiratory exam: Present: normal lung sounds bilaterally. Absent: respiratory distress, wheezes, rales, rhonchi, stridor Cardiovascular Exam: Present: regular rate, normal rhythm, normal heart sounds. Absent: systolic murmur, diastolic murmur, rubs, gallop, clicks GI/Abdominal exam: Present: soft, normal bowel sounds. Absent: distended, tenderness, guarding, rebound, rigid Neurological exam: Present: alert, oriented X3, CN II-XII intact Psychiatric exam: Present: normal affect, normal mood Skin exam: Present: warm, dry, intact, normal color. Absent: rash Course Vital Signs 02/16/18 20:23 Temperature 97.9 F Pulse Rate 88 Respiratory 20 Rate Blood Pressure 114/74 O2 Sat by Pulse 100 Oximetry Medical Decision Making - Medical Decision Making 27-year-old female patient presented to the emergency department today for evaluation of vomiting and diarrhea. Patient reports that vomiting has improved. Physical examination is relatively unremarkable. Abdomen is soft and nontender. Vital signs are stable no sinus tachycardia. Mucous membranes are moist. Patient denies any chance of , states that she is homosexual. Patient will be given by mouth Zofran and an IM dose of Bentyl. She will be discharged home with instructions to start with a clear liquid diet and advance as tolerated. She is instructed to follow-up with her primary care physician for recheck in 1-2 days. Return parameters discussed in detail. She verbalizes understanding and agrees with this plan. Disposition Clinical Impression: Gastroenteritis Disposition: HOME SELF-CARE Condition: Good Instructions: Gastroenteritis (ED) Additional Instructions: Take medications as directed. Start with clear liquid diet and advance as tolerated. Follow up with your primary care physician for recheck in 1-2 days. Return here immediately for any new, worsening, or concerning symptoms Prescriptions: Ondansetron [Zofran ODT] 4 mg PO Q8HR PRN #10 tab PRN Reason: Nausea Is patient prescribed a controlled substance at d/c from ED?: No Referrals: None,Stated [Primary Care Provider] - 1-2 days Time of Disposition: 22:47
[2018-02-16 23:03] VITALS: BP 121/59; PULSE 78; RESP 18; TEMP 98.1
== END 2018-02-16 23:06 | disposition home or self-care (01) ==
LOC: EC 19:19
DX: K52.9 Noninfective gastroenteritis and colitis, unspecified (principal); F17.200 Nicotine dependence, unspecified, uncomplicated
CPT/HCPCS: 99283; 96372; J0500

== ENCOUNTER 2024-03-23 19:19 | Emergency (ER) | payer OTHER ==
[2024-03-23] MEDS ORDERED: VANCOMYCIN IV PER PHARMACY 1 EACH MISC MISCELLANE PRN (21:46)
--- NOTE | 2024-03-23 21:48 | ED ---
Recheck HPI - General Chief Complaint: Back Pain/Injury Stated Complaint: Abcess on Back/L Knee Swollen Time Seen by Provider: 03/23/24 21:28 Source: patient, RN notes reviewed, old records reviewed Mode of arrival: wheelchair Limitations: no limitations - History of Present Illness Initial Comments: This is a 33-year-old female to the ER for evaluation today. Patient presents today for evaluation regards to reevaluation of back pain and knee pain. Patient is having persistent pain since shaking fevers here in the emergency room. Patient having increasing pain of the back and the MD Complaint: other (Left knee with back pain) -: days(s) Returns Today for: persistent/worsening pain related to initial visit Symptoms Since Prior Visit: worsening pain Context: planned re-check Associated Symptoms: none Treatments Prior to Arrival: other - Related Data Previous Rx's Medication Instructions Recorded QUEtiapine [SEROquel] 50 mg PO HS 30 Days #30 tab 12/31/17 Ondansetron [Zofran ODT] 4 mg PO Q8HR PRN #10 tab 02/16/18 Allergies Allergy/AdvReac Type Severity Reaction Status Date / Time Iodinated Contrast Media Allergy Cough Verified 03/24/24 00:53 Review of Systems ROS Statement: Those systems with pertinent positive or pertinent negative responses have been documented in the HPI. ROS Other: All systems not noted in ROS Statement are negative. Past Medical History Past Medical History: No Reported History Additional Past Medical History / Comment(s): Hepaitits C History of Any Multi-Drug Resistant Organisms: None Reported Past Surgical History: No Surgical Hx Reported Additional Past Surgical History / Comment(s): Sepsis due to abscess on back Past Psychological History: Anxiety, Bipolar, Depression, PTSD Smoking Status: Current every day smoker Past Alcohol Use History: None Reported Past Drug Use History: Heroin, IV Drug Use, Marijuana - Past Family History Mother Additional Family Medical History / Comment(s): She denies any family history of heart disease and stroke. General Exam Limitations: no limitations General appearance: alert, in no apparent distress Head exam: Present: atraumatic, normocephalic, normal inspection Eye exam: Present: normal appearance, PERRL, EOMI. Absent: scleral icterus, conjunctival injection, periorbital swelling ENT exam: Present: normal exam, mucous membranes moist Neck exam: Present: normal inspection. Absent: tenderness, meningismus, lymphadenopathy Respiratory exam: Present: normal lung sounds bilaterally. Absent: respiratory distress, wheezes, rales, rhonchi, stridor Cardiovascular Exam: Present: regular rate, normal rhythm, normal heart sounds. Absent: systolic murmur, diastolic murmur, rubs, gallop, clicks GI/Abdominal exam: Present: soft, normal bowel sounds. Absent: distended, tenderness, guarding, rebound, rigid Extremities exam: Present: tenderness (Spinal), normal capillary refill. Absent: pedal edema, joint swelling, calf tenderness Left Knee exam: Present: tenderness, swelling (Left knee effusion). Absent: full ROM Back exam: Present: normal inspection Neurological exam: Present: alert, oriented X3, CN II-XII intact Psychiatric exam: Present: normal affect, normal mood Skin exam: Present: warm, dry, intact, normal color. Absent: rash Course Vital Signs 03/23/24 03/23/24 03/23/24 19:25 20:49 22:30 Temperature 98 F 98.3 F Pulse Rate 88 83 116 H Respiratory 20 18 18 Rate Blood Pressure 139/92 133/79 138/90 O2 Sat by Pulse 99 100 100 Oximetry 03/23/24 03/24/24 23:44 00:41 Temperature 97.6 F 97.8 F Pulse Rate 76 96 Respiratory 20 18 Rate Blood Pressure 138/90 132/68 O2 Sat by Pulse 100 99 Oximetry - Reevaluation(s) Reevaluation #1: 03/24/24 00:17 Medical records reviewed Reevaluation #2: 03/24/24 00:17 Patient symptoms unchanged Reevaluation #3: 03/24/24 00:17 Patient informed of results and questions answered Reevaluation #4: Was pt. sent in by a medical professional or institution (, PA, [facility], urgent care, hospital, or halfway...) When possible be specific @ -no Did you speak to anyone other than the patient for history (EMS, parent, family, police, friend...)? What history was obtained from this source @ -no Did you review nursing and triage notes (agree or disagree)? Why? @ -agree Are old charts reviewed (outside hosp., previous admission, EMS record, old EKG, old radiological studies, urgent care reports/EKG's, halfway records)? Report findings @ -yes Differential Diagnosis (chest pain, altered mental status, abdominal pain women, abdominal pain men, vaginal bleeding, weakness, fever, dyspnea, syncope, headache, dizziness, GI bleed, back pain, seizure, CVA, palpatations, mental health, musculoskeletal)? @ -prior EKG interpreted by me (3pts min.). @ -yes X-rays interpreted by me (1pt min.). @ -yes negative for acute disease CT interpreted by me (1pt min.). @ -Yes significant for paraspinal discitis and inflammation, infection U/S interpreted by me (1pt. min.). @ -no What testing was considered but not performed or refused? (CT, X-rays, U/S, labs)? Why? @ -none What meds were considered but not given or refused? Why? @ -none Did you discuss the management of the patient with other professionals (professionals i.e. , PA, [facility], lab, RT, psych nurse, social work instructor, vegetable harvest machine operator, teacher, professional security officer, case maker)? Give summary @ -no Was smoking cessation discussed for >3mins.? @ -no Was critical care preformed (if so, how long)? @ -yes31 Were there social determinants of health that impacted care today? How? (Homelessness, low income, unemployed, alcoholism, drug addiction, transportation, low edu. Level, literacy, decrease access to med. care, [place] [facility], rehab)? @ -none Was there de-escalation of care discussed even if they declined (Discuss DNR or withdrawal of care, Hospice)? DNR status @ -no What co-morbidities impacted this encounter? (DM, HTN, Smoking, COPD, CAD, Cancer, CVA, ARF, Chemo, Hep., AIDS, mental health diagnosis, sleep apnea, morbid obesity)? @ -none Was patient admitted / discharged? Hospital course, mention meds given and route, prescriptions, significant lab abnormalities, going to OR and other pertinent info. @ - 33 female to the ER for evaluation of severe back pain left knee pain with left knee effusion and back inflammation edema, tenderness. Patient does have history of psoas abscess with drainage and significant IV drug abuse. Patient will be transferred back to inpatient evaluation at [facility] Transferred inpatient for admission Undiagnosed new problem with uncertain prognosis? @ -no Drug Therapy requiring intensive monitoring for toxicity (Heparin, Nitro, Insulin, Cardizem)? @ -no Were any procedures done? @ -no Diagnosis/symptom? @ -Back pain postsurgical abscess, knee pain bacteremia Acute, or Chronic, or Acute on Chronic? @ -Acute Uncomplicated (without systemic symptoms) or Complicated (systemic symptoms)? @ -Complicated Side effects of treatment? @ -no Exacerbation, Progression, or Severe Exacerbation? @ -exacerbation Poses a threat to life or bodily function? How? (Chest pain, [place], [place], pneumonia, PE, COPD, DKA, ARF, appy, cholecystitis, CVA, Diverticulitis, Homicidal, Suicidal, threat to staff... and all critical care pts) @ -yes postsurgical complication Reevaluation #5: Differential Fever: Pneumonia, viral URI, endocarditis, myocarditis, pericarditis, otitis, sinusitis, peritonsillar Abscess, retropharyngeal Abscess, epiglottitis, peritonitis, appendicitis, Elda cystitis, diverticulitis, hepatitis, colitis, UTI, PID, TOA, pyelonephritis, prostatitis, epididymitis, meningitis, encephalitis, pulmonary embolism, CVA, thyroid storm, pancreatitis, adrenal crisis, cavernous sinus thrombosis, this is not meant to be an all-inclusive list. - Consultations Consultation #1: Spoke with [facility] who accept the patient in transfer Dr. Villarreal Medical Decision Making - Medical Decision Making 33 female to the ER for evaluation of severe back pain left knee pain with left knee effusion and back inflammation edema, tenderness. Patient does have history of psoas abscess with drainage and significant IV drug abuse. Patient will be transferred back to inpatient evaluation at [facility] - Lab Data Result diagrams: 03/23/24 21:52 03/23/24 21:52 Lab Results 03/23/24 03/23/24 03/23/24 Range/Units 21:50 21:52 21:52 WBC 10.2 (3.8-10.6) k/uL RBC 4.41 (3.80-5.40) m/uL Hgb 10.7 L (11.4-16.0) gm/dL Hct 35.3 (34.0-46.0) % MCV 80.1 (80.0-100.0) fL MCH 24.4 L (25.0-35.0) pg MCHC 30.4 L (31.0-37.0) g/dL RDW 16.8 H (11.5-15.5) % Plt Count 397 (150-450) k/uL MPV 7.3 Neutrophils % 44 % Lymphocytes % 45 % Monocytes % 6 % Eosinophils % 1 % Basophils % 1 % Neutrophils # 4.5 (1.3-7.7) k/uL Lymphocytes # 4.6 (1.0-4.8) k/uL Monocytes # 0.6 (0-1.0) k/uL Eosinophils # 0.1 (0-0.7) k/uL Basophils # 0.1 (0-0.2) k/uL Hypochromasia Slight Anisocytosis Slight Microcytosis Slight ESR 57 H (0-20) mm/Hr PT (10.0-12.5) sec INR (<1.2) APTT (22.0-30.0) sec Sodium 138 (137-145) mmol/L Potassium 4.5 (3.5-5.1) mmol/L Chloride 107 (98-107) mmol/L Carbon Dioxide 26 (22-30) mmol/L Anion Gap 5 mmol/L BUN 20 H (7-17) mg/dL Creatinine 0.52 (0.52-1.04) mg/dL Est GFR (CKD-EPI)AfAm >90 (>60 ml/min/1.73 sqM) Est GFR (CKD-EPI)NonAf >90 (>60 ml/min/1.73 sqM) Glucose 107 H (74-99) mg/dL Plasma Lactic Acid Ray (0.7-2.0) mmol/L Calcium 9.6 (8.4-10.2) mg/dL Phosphorus 3.8 (2.5-4.5) mg/dL Magnesium 1.9 (1.6-2.3) mg/dL Total Bilirubin 0.4 (0.2-1.3) mg/dL AST 22 (14-36) U/L ALT 29 (4-34) U/L Alkaline Phosphatase 70 (38-126) U/L Troponin I (0.000-0.034) ng/mL C-Reactive Protein 1.1 H (<1.0) mg/dL NT-Pro-B Natriuret Pep 67 pg/mL Total Protein 7.8 (6.3-8.2) g/dL Albumin 4.2 (3.5-5.0) g/dL Urine Color Colorless Urine Appearance Clear (Clear) Urine pH 7.5 (5.0-8.0) Ur Specific Lerna 1.020 (1.001-1.035) Urine Protein Negative (Negative) Urine Glucose (UA) Negative (Negative) Urine Ketones Negative (Negative) Urine Blood Negative (Negative) Urine Nitrite Negative (Negative) Urine Bilirubin Negative (Negative) Urine Urobilinogen <2.0 (<2.0) mg/dL Ur Leukocyte Esterase Negative (Negative) 03/23/24 03/23/24 03/23/24 Range/Units 21:52 21:52 21:52 WBC (3.8-10.6) k/uL RBC (3.80-5.40) m/uL Hgb (11.4-16.0) gm/dL Hct (34.0-46.0) % MCV (80.0-100.0) fL MCH (25.0-35.0) pg MCHC (31.0-37.0) g/dL RDW (11.5-15.5) % Plt Count (150-450) k/uL MPV Neutrophils % % Lymphocytes % % Monocytes % % Eosinophils % % Basophils % % Neutrophils # (1.3-7.7) k/uL Lymphocytes # (1.0-4.8) k/uL Monocytes # (0-1.0) k/uL Eosinophils # (0-0.7) k/uL Basophils # (0-0.2) k/uL Hypochromasia Anisocytosis Microcytosis ESR (0-20) mm/Hr PT 11.0 (10.0-12.5) sec INR 1.0 (<1.2) APTT 25.9 (22.0-30.0) sec Sodium (137-145) mmol/L Potassium (3.5-5.1) mmol/L Chloride (98-107) mmol/L Carbon Dioxide (22-30) mmol/L Anion Gap mmol/L BUN (7-17) mg/dL Creatinine (0.52-1.04) mg/dL Est GFR (CKD-EPI)AfAm (>60 ml/min/1.73 sqM) Est GFR (CKD-EPI)NonAf (>60 ml/min/1.73 sqM) Glucose (74-99) mg/dL Plasma Lactic Acid Ray 0.9 (0.7-2.0) mmol/L Calcium (8.4-10.2) mg/dL Phosphorus (2.5-4.5) mg/dL Magnesium (1.6-2.3) mg/dL Total Bilirubin (0.2-1.3) mg/dL AST (14-36) U/L ALT (4-34) U/L Alkaline Phosphatase (38-126) U/L Troponin I <0.012 (0.000-0.034) ng/mL C-Reactive Protein (<1.0) mg/dL NT-Pro-B Natriuret Pep pg/mL Total Protein (6.3-8.2) g/dL Albumin (3.5-5.0) g/dL Urine Color Urine Appearance (Clear) Urine pH (5.0-8.0) Ur Specific Lerna (1.001-1.035) Urine Protein (Negative) Urine Glucose (UA) (Negative) Urine Ketones (Negative) Urine Blood (Negative) Urine Nitrite (Negative) Urine Bilirubin (Negative) Urine Urobilinogen (<2.0) mg/dL Ur Leukocyte Esterase (Negative) - EKG Data -: EKG Interpreted by Me (EKG is sinus 69 AL 124 QRS 78 QTc 393) - Radiology Data Radiology results: report reviewed (CT LS spine is positive for paraspinal a bscess and inflammation, x-ray left knee is negative for acute disease), image reviewed Critical Care Time Critical Care Time: Yes Total Critical Care Time: 31 Disposition Clinical Impression: Paraspinal abscess, Effusion, left knee, Bacteremia Disposition: OTHER INSTITUTION NOT DEFINED Condition: Serious Is patient prescribed a controlled substance at d/c from ED?: No Referrals: None,Stated [Primary Care Provider] - 1-2 days Time of Disposition: 00:00 - Out of Hospital Transfer - Req. Specs Out of Hospital Transfer - Requested Specifics: Other Emergency Center ([facility])
[2024-03-23 22:12] LABS: Anisocytosis Slight; Basophils # (A) 0.1 k/uL (0-0.2); Basophils % (A) 1 %; Eosinophils # (A) 0.1 k/uL (0-0.7); Eosinophils % (A) 1 %; HCT 35.3 % (34.0-46.0); HGB 10.7 gm/dL (11.4-16.0); Hypochromasia Slight; Lymphocytes # (A) 4.6 k/uL (1.0-4.8); Lymphocytes % (A) 45 %; MCH 24.4 pg (25.0-35.0); MCHC 30.4 g/dL (31.0-37.0); MCV 80.1 fL (80.0-100.0); Mean Platelet Volume 7.3; Microcytosis Slight; Monocytes # (A) 0.6 k/uL (0-1.0); Monocytes % (A) 6 %; Neutrophils # (A) 4.5 k/uL (1.3-7.7); Neutrophils % (A) 44 %; Platelet Count 397 k/uL (150-450); RBC 4.41 m/uL (3.80-5.40); RDW 16.8 % (11.5-15.5); WBC 10.2 k/uL (3.8-10.6)
[2024-03-23 22:28] LABS: ALT 29 U/L (4-34); AST 22 U/L (14-36); African American GFR (CKD) >90 (>60 ml/min/1.73 sqM); Albumin 4.2 g/dL (3.5-5.0); Alkaline Phosphatase 70 U/L (38-126); Anion Gap 5 mmol/L; Blood Urea Nitrogen 20 mg/dL (7-17); C Reactive Protein 1.1 mg/dL (<1.0); Calcium 9.6 mg/dL (8.4-10.2); Carbon Dioxide 26 mmol/L (22-30); Chloride 107 mmol/L (98-107); Glucose 107 mg/dL (74-99); Magnesium 1.9 mg/dL (1.6-2.3); Non-African American GFR(CKD) >90 (>60 ml/min/1.73 sqM); Phosphorus 3.8 mg/dL (2.5-4.5); Potassium 4.5 mmol/L (3.5-5.1); Sodium 138 mmol/L (137-145); Total Bilirubin 0.4 mg/dL (0.2-1.3); Total Protein 7.8 g/dL (6.3-8.2)
[2024-03-23 22:29] LABS: Appearance,Urine Clear (Clear); Bilirubin,Urine Negative (Negative); Blood,Urine Negative (Negative); Color,Urine Colorless; Glucose,Urine (UA) Negative (Negative); Ketones,Urine Negative (Negative); Leukocyte Esterase,Urine Negative (Negative); Nitrite,Urine Negative (Negative); PH, Urine 7.5 (5.0-8.0); Protein,Urine Negative (Negative); Urobilinogen,Urine <2.0 mg/dL (<2.0)
[2024-03-23 22:33] LABS: NT-Pro-B-Type Natriuretic Pept 67 pg/mL
[2024-03-23] MEDS: diphenhydrAMINE 50 MG/ML 1 ML VIAL IVP STA (22:33)
[2024-03-23] MEDS: FAMOTIDINE 20 MG/2 ML VIAL IV SCH (22:38)
[2024-03-23] MEDS: methylPREDNISolone SOD SUCCI 125 MG/2 ML VIAL IV STA (22:39)
[2024-03-23] MEDS: ACETAMINOPHEN IV (For NPO) 1,000 MG in EMPTY BAG 1 BAG IVPB STA (22:41)
[2024-03-23] MEDS: SODIUM CHLORIDE 0.9% 1,000 ML IV STA (22:42)
[2024-03-23 22:47] LABS: Partial Thromboplastin Time 25.9 sec (22.0-30.0)
--- NOTE | 2024-03-23 22:50 | CT ---
EXAMINATION TYPE: CT lumbar spine w con DATE OF EXAM: 03/23/2024 COMPARISON: None. HISTORY: abscess on back x 4-5 weeks, b.b. placed. Sepsis x [address] DLP: 544.3 mGycm Automated exposure control for dose reduction was used. CONTRAST: CT scan of the lumbar is performed with IV Contrast, patient injected with 100 mL of Isovue 300. Enhanced CT of the lumbar spine was performed. Bone and soft tissue window settings are submitted as well as coronal and sagittal reconstructions. There are 5 lumbar-type vertebra. There is heterogeneous abnormal soft tissue destroying portions of the spinous process at L3 and L4 level extending into involve the posterior aspect of the spinal bia l most prominent spinal canal stenosis is observed at L4-L5 level axial image 59. Abnormal heterogene ous soft tissue invades the spinal canal beginning mid L3 level through the mid L5 level sagittal angelita ge 32 could reflect thickened ligament versus phlegmon spread. No well-formed fluid collection or abs cess is seen. Destruction of the posterior elements including lamina at L4 level noted axial image 51 . Destruction right lateral elements at L5 level axial image 60. Destruction left L4 elements axial i mage 52. Metallic BB is at L3-L4 levels as image 37. No well-formed thick walled fluid collection or drainable abscess noted. IMPRESSION: Suspicious osseous destruction posterior elements with abnormal soft tissue extending int o the spinal canal. Infectious process involving posterior muscles spinal canal extension is suspecte d. Advise urgent neurosurgical evaluation.
--- NOTE | 2024-03-23 23:14 | XR ---
EXAMINATION TYPE: XR knee complete LT DATE OF EXAM: 03/23/2024 CLINICAL HISTORY: Pain TECHNIQUE: Three views of the left knee are obtained. COMPARISON: None. FINDINGS: There is no acute fracture/dislocation evident in left knee. Mild to moderate tricompartme nt joint space loss without significant spurring. The overlying soft tissue appears unremarkable. IMPRESSION: As above. No acute findings are evident.
[2024-03-23] MEDS: KETOROLAC 15 MG/ML 1 ML VIAL IVP STA (23:26)
[2024-03-24 00:43] VITALS: BP 132/68; TEMP 97.8
[2024-03-24] MEDS: VANCOMYCIN 1,000 MG in SODIUM CHLORIDE 0.9% 250 ML IVPB ONE (00:43)
[2024-03-24 00:51] VITALS: PULSE 96; RESP 18
[2024-03-24 02:19] LABS: Erythrocyte Sedimentation Rate 57 mm/Hr (0-20)
[2024-03-24] MEDS ORDERED: VANCOMYCIN 1,000 MG in SODIUM CHLORIDE 0.9% 250 ML IVPB SCH (08:00)
== END 2024-03-24 00:54 | disposition other institution (70) ==
LOC: EC 19:19
DX: G06.1 Intraspinal abscess and granuloma (principal); M25.562 Pain in left knee; R78.81 Bacteremia; F17.200 Nicotine dependence, unspecified, uncomplicated; Z91.041 Radiographic dye allergy status
CPT/HCPCS: 36415; 93005; 83880; 80053; 85652; 83605; 83735; 84100; 84484; 85025; 85610; 85730; 86140; 81003; 87040; 73562; 72132; 99285; 96365; 96367; 96375 ×6; 96361; J3370; J1200; J3360; J0696; J3490; J0131; J1885; Q9967; J2919